=== PATIENT | male | born 1955 | race Caucasian/White ===

== ENCOUNTER 2020-02-26 06:54 | Outpatient (NON) | payer BC, SELFPAY ==
[2020-02-26 22:15] LABS: SARS-CoV-2 RNA PCR Negative
== END 2020-02-26 06:55 ==
PROVIDERS: Visit Provider Nurse Practitioner Family
DX: R68.83 Chills (without fever) (principal); Z20.822 Contact with and (suspected) exposure to COVID-19
CPT/HCPCS: C9803; U0003; U0005

== ENCOUNTER 2020-10-29 17:32 | Emergency (ER) | payer BC, SELFPAY ==
--- NOTE | ~2020-10-29 | XR_ITS ---
XR finger 2nd LT min 2V DATE: 10/29/2020 18:32 INDICATION: Laceration TECHNIQUE: 3 views COMPARISON: None FINDINGS: There is soft tissue bandage around the proximal and mid aspect of the left second digit fo r clinically reported laceration. No radiopaque soft tissue foreign body is detected. No recent fract ure or dislocation, periosteal reaction or bone destruction is noted. 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 IMPRESSION: No radiopaque foreign body or recent fracture or dislocation is evident Reviewed, dictated and finalized at location A. IMPRESSION: No radiopaque foreign body or recent fracture or dislocation is doreen dent
[2020-10-29 18:12] VITALS: BP 156/88; PULSE 64; RESP 18; TEMP 36.4; O2SAT 100
[2020-10-29 19:12] VITALS: BP 167/98; PULSE 63; RESP 18; TEMP 36.6; O2SAT 98
--- NOTE | 2020-10-29 21:28 | ED.UPPEXIN ---
HPI - Extremity Injury (Upper) General Chief Complaint: Wound/Laceration Stated Complaint: finger laceration Time Seen by Provider: 10/29/20 19:20 Source: patient Mode of arrival: ambulatory Limitations: no limitations History of Present Illness HPI narrative: 64-year-old man Right-handed Presenting with an injury to his left index finger He was wearing gloves and splitting logs using a vertical log splitter He somehow got his left index finger caught in the mechanism as he was removing a piece of wood and sustained a laceration to the palmar side of his left index finger He has full sensation distal to the injury and can move the DIP and PIP although he notes that he has a history of trigger fingers in both hands and that his flexion is normally somewhat impaired by that Related Data Home Medications Medication Instructions Recorded Confirmed levothyroxine 10/29/20 simvastatin mg 10/29/20 10/29/20 Allergies Allergy/AdvReac Type Severity Reaction Status Date / Time No Known Allergies Allergy Verified 10/29/20 19:16 Review of Systems Musculoskeletal: Musculoskeletal: Reports arthralgias and Reports joint swelling Integumentary/Breasts: Skin/Breast: Reports as per HPI Neurologic: Denies numbness and Denies weakness Exam Const: General: cooperative, no acute distress and alert Orientation/consciousness: patient oriented x3 (alert) HENMT: Head: normocephalic and atraumatic Neck: Neck: supple and no JVD Resp: Effort & Inspection: normal respiratory effort and not labored Auscultation: other (BS =) Skin: General skin exam: normal color and no rashes or lesions noted Neuro: General: patient oriented x3 (alert) and moves all extremities Speech: normal speech Other: Sensation is intact to light touch on each side of the tip of the injured finger Extrem: Other: Left index finger with a complex W-shaped laceration over the middle phalanx PIP and proximal phalanx The most radial flap is distally based and partial-thickness and dusky at the tip The ulnar side flap is full-thickness and laterally based Intact flexor tendon is exposed at the base of the wound DIP and PIP flexion is normal No foreign bodies are seen Psych: Affect: normal affect Course Vital Signs Vital signs: Vital Signs Temperature 36.4 C 10/29/20 18:12 Pulse Rate 64 10/29/20 18:12 Respiratory Rate 18 10/29/20 18:12 Blood Pressure 156/88 H 10/29/20 18:12 Pulse Oximetry 100 10/29/20 18:12 Temperature 36.6 C 10/29/20 19:12 Pulse Rate 63 10/29/20 19:12 Respiratory Rate 18 10/29/20 19:12 Blood Pressure 167/98 H 10/29/20 19:12 Pulse Oximetry 98 10/29/20 19:12 Procedures Laceration Laceration 1: Date: 10/29/20 Time: 20:15 Site: hand Side (If applicable): left Size (cm): 3 Description: stellate and flap Local Anesthetic: lidocaine 1% and bupivacaine 0.5% Amount of anesthesia used (mL): 4 Pre-repair: wound explored, irrigated (With saline), irrigated extensively (With tap water) and deep structures intact ====== Skin Level ====== Skin layer closed with: nylon Size (cm): 5-0 Number of sutures: 12 Technique: simple, interrupted and horizontal mattress (1 of these) ====== Subcutaneous Layer ====== ====== Muscle Layer ====== ====== Tendon Layer ====== Nerve Block Nerve Block 1: Nerve block date: 10/29/20 Nerve block time: 20:10 Local Anesthetic: lidocaine 1%, bupivacaine 0.5% and none Amount of anesthesia used (mL): 4 Side: left Nerve Blocks: digital Procedure Successful: Yes Patient Tolerated Procedure: well Complications: none Discharge Plan Discharge Clinical Impression: Laceration of finger of left hand without foreign body Patient Disposition: Home, Self-Care Condition: Improved Instructions: Antibiotic Form
[2020-10-29] MEDS: TETANUS,DIPHTHERIA,AC PERTUSSIS ADULT (0.5 ML) BOOSTRIX IM (22:17)
[2020-10-29] MEDS: ceFAZolin SODIUM 1 GM VIAL 2 GM IM (22:20)
[2020-10-29 22:45] VITALS: BP 136/84; PULSE 53; RESP 18; TEMP 36.5; O2SAT 98
--- NOTE | 2020-10-29 23:01 | PC.NURSE ---
Sterile water used for reconstituting Ancef injections per day care attendant guidelines, 2.5 mL for each injection.
== END 2020-10-29 22:50 | disposition home or self-care (01) ==
PROVIDERS: Emergency Provider Emergency Medicine; PCP Nurse Practitioner Family
DX: S61.211A Laceration without foreign body of left index finger without damage to nail, initial encounter (principal); Z23 Encounter for immunization; W31.89XA Contact with other specified machinery, initial encounter
CPT/HCPCS: 12002; 73140; 90471; 90715; 96372; 99283; J0690